=== PATIENT | female | born 1970 | race Caucasian/White ===

== ENCOUNTER 2021-01-19 08:07 | Outpatient (CLI) | payer OTHER | END 2021-01-19 08:08 | disposition home or self-care (01) | LOC: CSHMAMMO 08:07 | PROVIDERS: ATTEND Family Medicine | DX: Z12.31 Encounter for screening mammogram for malignant neoplasm of breast (principal) | CPT/HCPCS: 77063; 77067 ==

== ENCOUNTER 2021-02-18 07:44 | Outpatient (CLI) | payer OTHER | END 2021-02-18 07:45 | disposition home or self-care (01) | LOC: CSHULT 07:44 | PROVIDERS: ATTEND Family Medicine | DX: R74.8 Abnormal levels of other serum enzymes (principal); K76.0 Fatty (change of) liver, not elsewhere classified | CPT/HCPCS: 93975 ==

== ENCOUNTER 2023-02-09 10:42 | Outpatient (CLI) | payer OTHER | END 2023-02-09 10:43 | disposition home or self-care (01) | LOC: CSHMAMMO 10:42 | PROVIDERS: ATTEND Family Medicine | DX: Z12.31 Encounter for screening mammogram for malignant neoplasm of breast (principal); Z80.3 Family history of malignant neoplasm of breast | CPT/HCPCS: 77063; 77067 ==